=== PATIENT | male | born 1990 | race Asian ===

== ENCOUNTER 2017-03-04 23:28 | Emergency (ER) | payer OTHER ==
[~2017-03-04] VITALS: Ht 170.2 cm; Wt 73.3 kg
[2017-03-04 23:29] VITALS: BP 139/84
== END 2017-03-05 02:26 | disposition left against medical advice (07) ==
LOC: M ED 23:28
DX: S69.90XA Unspecified injury of unspecified wrist, hand and finger(s), initial encounter (principal); X58.XXXA Exposure to other specified factors, initial encounter; Y92.89 Other specified places as the place of occurrence of the external cause; Y93.89 Activity, other specified; Y99.8 Other external cause status; Z53.29 Procedure and treatment not carried out because of patient's decision for other reasons

== ENCOUNTER 2020-11-25 22:06 | Emergency (ER) | payer OTHER ==
[~2020-11-25] VITALS: Ht 167.6 cm; Wt 77.8 kg
[2020-11-25 22:07] VITALS: BP 134/91
[2020-11-25] MEDS ORDERED: AMOX875T2 (22:15)
== END 2020-11-25 23:23 | disposition home or self-care (01) ==
LOC: M ED 22:06
DX: Z48.02 Encounter for removal of sutures (principal)